=== PATIENT | female | born 1980 | race Caucasian/White ===

== ENCOUNTER 2017-04-06 14:09 | Inpatient (IN) ==
--- NOTE | 2017-04-06 14:19 | Emergency Department Note ---
Disposition Clinical Impression: Facial cellulitis, Periorbital cellulitis Disposition: Admitted As Inpatient Condition: Good Eye Problem HPI - General Chief complaint: ED Eye Problems Stated complaint: facial cellulitis Time Seen by Provider: 04/06/17 14:13 Source: patient Mode of arrival: ambulatory Limitations: no limitations Nursing Notes Reviewed: Yes Vital Signs Reviewed: Yes - History of Present Illness HPI Narrative: Patient presents to the ED as a transfer from urgent care with the complaint of facial swelling. Patient has a reported history of MRSA previous facial cellulitis. States that last night she noticed her face was swelling on the left than the right. No lesions or bites noted. States that this morning she woke up and her entire right eye and face were incredibly swollen. [facility] and was immediately told to come here. No fever. No pain with eye movement. No changes in vision other than her eye is almost swollen shut. Has had some drainage from around her eye. Also complaining of a headache on that side behind her right eye. No rashes, chest pain or shortness of breath. - Related Data Home Medications Medication Instructions Recorded Confirmed Acetaminophen [Tylenol Arthritis] 650 mg PO Q8H PRN 04/06/17 04/06/17 Norethindrone [Salud] 0.35 mg PO DAILY 04/06/17 04/06/17 Omeprazole [PriLOSEC] 40 mg PO DAILY 04/06/17 04/06/17 Sertraline [Zoloft] 50 mg PO DAILY 04/06/17 04/06/17 Allergies Allergy/AdvReac Type Severity Reaction Status Date / Time pseudoephedrine AdvReac See Verified 04/06/17 14:12 [From Sudafed] Comments tramadol [From Ultram] AdvReac See Verified 04/06/17 14:12 Comments All systems ED: reviewed and negative except as stated. Constitutional: Denies: fever Eyes: Reports: as per HPI ENT ED: Reports: as per HPI Cardiovascular: Denies: chest pain Respiratory: Denies: dyspnea Gastrointestinal: Denies: abdominal pain Past Medical History - Past Medical History Attestation: Yes The following information was validated with the patient. Source: patient Medical history: Reports: GERD Psychiatric history: Reports: anxiety, panic disorder, PTSD - Social History Smoking Status: Current every day smoker Alcohol use: Reports: none Drug use: Reports: none Physical Exam - General Limitations: no limitations General appearance: alert, in no apparent distress - Expanded Head Exam 1 - swelling and edema of face, mild erythema, no obvious abscess or lacerations or abrasions - Eye Eye exam: Present: PERRL, EOMI (without pain ). Absent: conjunctival injection , miosis, mydriasis - ENT ENT exam: normal oropharynx - Neck Neck exam: Present: normal inspection, full ROM, trachea midline - Chest Chest inspection: Present: normal inspection, symmetric chest wall rise - Respiratory Respiratory exam: Present: normal lung sounds bilaterally - Cardiovascular Cardiovascular exam: Present: regular rate, normal rhythm, normal heart sounds - Neurological Exam Neurological exam: Present: alert, oriented X3 - Psychiatric Psychiatric exam: Present: normal affect, normal mood - Skin Skin exam: Present: warm, dry, intact. Absent: normal color (mild erythema to R face) Course Course Narrative: Patient presenting with extensive swelling to the right side of her face. Concern over. Facial cellulitis. I is just about swollen shut on the right, but is able to be evaluated. No pain with eye movement and no proptosis or conjunctival injection. Feel that orbital cellulitis is less likely, although with the rapid onset and progression of symptoms, we will order a CT scan with IV contrast of her orbits to further evaluate. No mastoid tenderness - Reevaluation(s) Reevaluation #1: CT scan shows periorbital cellulitis and facial cellulitis. Will admit. Vital Signs Temperature 97.8 F 04/06/17 14:10 Pulse Rate 84 04/06/17 14:10 Respiratory Rate 16 04/06/17 14:10 Blood Pressure 133/82 04/06/17 14:10 O2 Sat by Pulse Oximetry 99 04/06/17 14:10 Temperature 97.8 F 04/06/17 14:10 Pulse Rate 69 04/06/17 17:04 Respiratory Rate 20 04/06/17 17:04 Blood Pressure 116/72 04/06/17 17:04 O2 Sat by Pulse Oximetry 98 04/06/17 17:04 Oxygen Delivery Oxygen Delivery Room Air Eye - MDM Narrative Medical decision making narrative: I examined this patient and my medical decision-making was reviewed with the Resident Physician. I agree with the documented findings, disposition and treatment plan as described except to the extent set forth below. Patient seen and evaluated by Dr. Moeller and myself, I agree with his evaluation and management plan, I supervised the care of the patient's stay. Patient presents today with 1 day of swelling around her right cheek and eye. Not allergic to anything she is aware of. The area is warm to touch this does not involve the eye itself. This is worse from worrisome for an orbital cellulitis. We will start on vancomycin check labs and CT the area. She will need admission. She is in agreement with plan. Orbit CT 04/06/17 14:14 IMPRESSION: Subcutaneous soft tissue swelling at the the right premaxillary/premandibular region extending to the bilateral premalar regions and bilateral periorbital regions, right more than left, likely related to soft tissue cellulitis. No evidence of fluid collection or abscess. Right preseptal orbital cellulitis without postseptal extension of inflammatory changes. The bilateral postseptal orbits are within normal limits. Mildly prominent bilateral cervical lymph nodes, most pronounced at the level 2A, likely reactive. Mild right sphenoid sinusitis. D/ / Ajit Swift MD / Ajit Swift MD Interpreting Provider: Ajit Swift MD 1600 hrs. we will go ahead and admit patient to the hospital this time speaking with hospitalist. Patient's agreement with plan. - Lab Data Result diagrams: 04/06/17 14:25 04/06/17 14:25 Lab Results 04/06/17 04/06/17 Range/Units 14:25 14:25 WBC 8.9 (4.3-11.1) K/mcL RBC 4.89 (3.82-4.97) M/mcL Hgb 15.1 (11.5-15.4) g/dL Hct 44.0 (35.3-44.9) % MCV 90.0 (83.0-100.0) fL MCH 30.9 (28.0-33.3) pg MCHC 34.3 (31.6-35.5) g/dL RDW 12.7 (11.5-14.5) % Plt Count 267 (140-400) K/mcL MPV 9.5 (9.4-12.4) fL Immature Gran % 0.5 (0-4) % Seg Neutrophils % 75.1 % Lymphocytes % 16.5 % Monocytes % 6.0 % Eosinophils % 1.2 % Basophils % 0.7 % Neutrophils # 6.7 (1.6-8.9) K/mcL Lymphocytes # 1.5 (0.6-4.6) K/mcL Monocytes # 0.5 (0.0-1.3) K/mcL Eosinophils # 0.1 (0.0-0.6) K/mcL Basophils # 0.1 (0.0-0.2) K/mcL Sodium 136 (136-145) mEq/L Potassium 2.9 L (3.5-4.5) mEq/L Chloride 103 (98-109) mEq/L Carbon Dioxide 24 (19-29) mEq/L BUN 7 (7-20) mg/dL Creatinine 0.69 (0.57-1.11) mg/dL Est GFR ( Amer) > 60 (> 60) Est GFR (Non-Af Amer) > 60 (> 60) BUN/Creatinine Ratio 10 (6-26) Glucose 98 (70-99) mg/dL Calculated Osmolality 280 (280-300) Calcium 9.0 (8.6-10.8) mg/dL
[2017-04-06] MEDS ORDERED: 0.9 % Sodium Chloride 1,000 ML IVC ONE (14:21)
[2017-04-06] MEDS ORDERED: Ketorolac 15 MG/ML VIAL IVP ONE (14:30)
[2017-04-06 14:32] LABS: Basophils # 0.1 K/mcL (0.0-0.2); Basophils % 0.7 %; Eosinophils # 0.1 K/mcL (0.0-0.6); Eosinophils % 1.2 %; Hemoglobin 15.1 g/dL (11.5-15.4); Immature Granulocytes % 0.5 % (0-4); Lymphocytes # 1.5 K/mcL (0.6-4.6); Lymphocytes % 16.5 %; Mean Corpuscular HGB Conc 34.3 g/dL (31.6-35.5); Mean Corpuscular Hemoglobin 30.9 pg (28.0-33.3); Mean Platelet Volume 9.5 fL (9.4-12.4); Monocytes # 0.5 K/mcL (0.0-1.3); Neutrophils # 6.7 K/mcL (1.6-8.9); Platelet Count 267 K/mcL (140-400); Red Blood Count 4.89 M/mcL (3.82-4.97); Red Cell Distribution Width 12.7 % (11.5-14.5); Segmented Neutrophils % 75.1 %
[2017-04-06 14:43] LABS: BUN/Creatinine Ratio 10 (6-26); Blood Urea Nitrogen 7 mg/dL (7-20); Carbon Dioxide 24 mEq/L (19-29); Chloride 103 mEq/L (98-109); Glucose 98 mg/dL (70-99); Osmolality,Calculated 280 (280-300); Potassium 2.9 mEq/L (3.5-4.5); Sodium 136 mEq/L (136-145); eGFR For African Americans > 60 (> 60); eGFR For Non-African Americans > 60 (> 60)
[2017-04-06] MEDS ORDERED: Vancomycin 1,750 MG in D5% in Water 500 ML IVPB ONE (15:00)
[2017-04-06] MEDS ORDERED: *HR* HYDROmorphone (PF) 1 MG/ML SYRINGE IVP ONE ×3 (15:09→17:16)
[2017-04-06] MEDS ORDERED: *HR* HYDROmorphone (PF) 1 MG/ML SYRINGE ONE (17:18)
[2017-04-06] MEDS ORDERED: *HR* HYDROmorphone (PF) 1 MG/ML SYRINGE IVP PRN (17:36)
[2017-04-06] MEDS ORDERED: Naloxone 0.4 MG/ML INJ IVP PRN (17:40)
[2017-04-06] MEDS ORDERED: MOM Conc 10 ML UD.LIQ PO PRN (17:40)
[2017-04-06] MEDS ORDERED: *HR* HYDROcodone/Acet 5/325 mg TABLET PO PRN (17:40)
--- NOTE | 2017-04-06 17:44 | Internal Med History&Physical ---
<Muriel Bunch - Last Filed: 04/06/17 17:31> Date of Encounter: 04/06/17 Time of Encounter: 17:15 Assessment and Plan (1) Facial cellulitis Current visit: Yes Status: Acute Pt reports that last night she noticed facial swelling, right > left. Swelling and redness became diffuse and significantly worse today. Pt has periorbital cellulitis to right eye with no vision due to swelling. Left eye slightly affected with swelling in inner canthus area. She denies any known injury, but has prior history of MRSA and recent root canal that the dentist said showed signs of infection prior to procedure. 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 Pt denies n/v/d, dizziness, fever, or chills. -Cold compresses to face prn -Vancomycin 1250mg IV bid -Zosyn 3.375g q6h -Dilaudid 1 mg every 4 hours as needed for pain -Ibuprofen 600mg po every 6 hours prn pain Orbit CT 04/06/17 14:14 IMPRESSION: Subcutaneous soft tissue swelling at the the right premaxillary/premandibular region extending to the bilateral premalar regions and bilateral periorbital regions, right more than left, likely related to soft tissue cellulitis. No evidence of fluid collection or abscess. Right preseptal orbital cellulitis without postseptal extension of inflammatory changes. The bilateral postseptal orbits are within normal limits. Mildly prominent bilateral cervical lymph nodes, most pronounced at the level 2A, likely reactive. Mild right sphenoid sinusitis. D/ / Ajit Swift MD / Ajit Swift MD Interpreting Provider: Ajit Swift MD (2) Anxiety Current visit: Yes Status: Acute Pt reports increased anxiety today since in the hospital. Continue home medications. Hydroxyzine 25mg po bid prn anxiety. (3) GERD (gastroesophageal reflux disease) Current visit: Yes Status: Acute Chronic. Prilosec 20mg po daily. Qualifiers: Esophagitis presence: esophagitis presence not specified Qualified Code(s) : K21.9 - Gastro-esophageal reflux disease without esophagitis (4) DVT prophylaxis Current visit: Yes Status: Acute Lovenox SQ. Pt is ambulatory Internal Medicine - H&P: HPI Admitted From: Home Plans for Post Hospital Care: Home History of present illness: Ms. Jones is a 36 year old female with prior history of MRSA and recent root canal. She presents to the emergency department with facial swelling, pain, pressure onset this morning. Patient denies any known injury, abrasions, lacerations or allergies. Pt had root canal 2 weeks ago, pt states that the dentist said there was infection in the tooth prior to procedure. Patient reports total vision loss in right eye due to edema. She denies nausea, vomiting, diarrhea, fever, chills, dizziness, abdominal pain. Pt reports prior history of a "pimple in my nose" with diagnosis of MRSA. Past Med Surg Social Fam HX - Past Medical History Medical history: GERD Psychiatric history: anxiety, panic disorder, PTSD - Social History Smoking Status: Current every day smoker Alcohol use: none Drug use: none Internal Medicine - H&P: Meds Acetaminophen [Tylenol Arthritis] 650 mg PO Q8H PRN 04/06/17 [History] Norethindrone [Salud] 0.35 mg PO DAILY 04/06/17 [History] Omeprazole [PriLOSEC] 40 mg PO DAILY 04/06/17 [History] Sertraline [Zoloft] 50 mg PO DAILY 04/06/17 [History] 3 Allergy/AdvReac Type Severity Reaction Status Date / Time pseudoephedrine AdvReac See Verified 04/06/17 14:12 [From Sudafed] Comments tramadol [From Ultram] AdvReac See Verified 04/06/17 14:12 Comments All Systems PM: A 10-system review of systems was performed and is negative for pertinent findings except as documented above in the HPI. - Constitutional Constitutional: no chills, no fever(s), no weakness - EENT Eyes: change in vision, loss of peripheral vision Ears: ear pain Nose, mouth and throat: facial pain, sinus pain - Cardiovascular Cardiovascular ROS IM: no chest pain, no lightheadedness, no palpitations - Respiratory Respiratory: no cough, no dyspnea on exertion, no pain on inspiration, no chest congestion - Gastrointestinal Gastrointestinal: no diarrhea, no nausea, no vomiting - Musculoskeletal Musculoskeletal ROS IM: no myalgias, no numbness, no tingling - Integumentary Integumentary IM: no new lesions, no non-healing lesions, no rash - Neurological Neurological ROS: loss of vision, no abnormal gait, no dizziness, no weakness - Constitutional Vitals: Temp Pulse Resp BP Pulse Ox 97.8 F 69 20 116/72 98 04/06/17 14:10 04/06/17 17:04 04/06/17 17:04 04/06/17 17:04 04/06/17 17:04 General appearance: Present: cooperative, mild distress, A&O X 3, pleasant, answers questions appropriately - Head Head exam: Present: normocephalic. Absent: normal inspection - Eye Eye exam: Present: periorbital swelling, periorbital tenderness, conjuntiva pink. Absent: normal appearance Pupils: Present: PERRL - Neck Neck exam general surgery: Present: supple, trachea midline. Absent: lymphadenopathy, tenderness - Respiratory Respiratory exam: Present: CTAB. Absent: accessory muscle use, chest wall tenderness, rales, respiratory distress, rhonchi, wheezes - Cardiovascular Cardiovascular exam: Present: RRR, +S1, +S2. Absent: diastolic murmur, gallop, rubs, systolic murmur - GI/Abdominal GI/Abdominal exam: Present: normal bowel sounds, soft. Absent: distended, hepatomegaly, tenderness - Extremities Exam Extremities exam: Present: normal capillary refill, pedal edema, warm, radial pulses palpable and symmetrical. Absent: calf tenderness, cyanotic, normal inspection, tenderness - Neurological Exam Neurological exam: Present: alert, oriented X3, no focal deficits. Absent: speech deficit - Skin Skin exam: Present: dry, intact, normal color, warm Internal Med - H&P Results - Labs CBC & Chem 7: 04/06/17 14:25 04/06/17 14:25 <Shay Miller - Last Filed: 04/06/17 19:20> Date of Encounter: 04/06/17 Internal Medicine - H&P: HPI History of present illness: Ms. Jones is a 36 year old female All Systems PM: A 10-system review of systems was performed and is negative for pertinent findings except as documented above in the HPI. - Constitutional Vitals: Temp Pulse Resp BP Pulse Ox 98.1 F 74 16 108/64 99 04/06/17 18:37 04/06/17 18:37 04/06/17 18:37 04/06/17 18:37 04/06/17 18:37 Internal Med - H&P Results - Labs CBC & Chem 7: 04/06/17 14:25 04/06/17 14:25 - Attending Attestation I examined this patient and my medical decision-making was reviewed with the ART EDUCATION PROFESSOR. I agree with the documented findings, disposition and treatment plan as described except to the extent set forth below. Patient is a 36-year-old female with past medical history of GERD, anxiety, panic disorder and PTSD. She is a current daily smoker. She presents to the ED with complaints of facial pain and swelling. She states it started last night and has been worsening. No known injury. She did have a count treatment on the right upper molars about 2 weeks ago. Her dentist apparently told her that she does have an infection and she was apparently not given antibiotics at that time. Patient complains of severe pain and redness and swelling. He states his lower pressure on her face. Initial workup in the ED with with a CT of the orbit reveals subcutaneous soft tissue swelling of the right pre- maxillary and pre-mandibular region extending to the bilateral pre-malar regions and bilateral periorbital regions right more than the left likely related to soft tissue cellulitis and no evidence of fluid collection or abscess. There is right preseptal orbital cellulitis without post-septal extension of the inflammatory changes. Patient needs IV Vancomycin and IV Zosyn and IV fluids. Patient has been explained about her condition and plan of care in detail. She understood and agreed. No unanswered questions. CODE STATUS full code. Heart rate 74, blood pressure 108/64, O2 sat 99% on room air. Heart S1-S2 positive. Lungs bilateral good air entry, bilateral mild wheezing. Abdomen soft nontender. HEENT - atraumatic. Patient does have severe right-sided facial swelling and redness. She does have periorbital swelling over the right eye. Pupils are reacting equally bilaterally. She does have the swelling that is extending across the midline on the left side. She does have tenderness over right side of face.
[2017-04-06] MEDS ORDERED: hydrOXYzine pamoate 25 MG CAPSULE PO PRN (18:05)
[2017-04-06] MEDS: Piperacillin/Tazobactam 3.375 GM in D5% in Water (Mini-Bag+) 100 ML IVPB SCH (18:43)
[2017-04-06] MEDS: *HR* Morphine 2 MG/ML SYRINGE IVP PRN (19:39)
[2017-04-06] MEDS ORDERED: Vancomycin (wt based) 1,000 MG VIAL IV SCH (21:00)
[2017-04-06] MEDS: Ibuprofen 600 MG TABLET PO PRN (22:42)
[2017-04-07] MEDS: Piperacillin/Tazobactam 3.375 GM in D5% in Water (Mini-Bag+) 100 ML IVPB SCH ×3 (02:26→18:33)
[2017-04-07] MEDS: *HR* Morphine 2 MG/ML SYRINGE IVP PRN ×5 (02:34→22:50)
[2017-04-07 04:35] LABS: Basophils # 0.1 K/mcL (0.0-0.2); Basophils % 1.2 %; Eosinophils # 0.2 K/mcL (0.0-0.6); Eosinophils % 2.8 %; Hematocrit 39.2 % (35.3-44.9); Immature Granulocytes % 0.3 % (0-4); Lymphocytes # 1.6 K/mcL (0.6-4.6); Lymphocytes % 25.9 %; Mean Corpuscular HGB Conc 33.2 g/dL (31.6-35.5); Mean Corpuscular Hemoglobin 30.4 pg (28.0-33.3); Mean Corpuscular Volume 91.8 fL (83.0-100.0); Monocytes # 0.5 K/mcL (0.0-1.3); Neutrophils # 3.7 K/mcL (1.6-8.9); Platelet Count 209 K/mcL (140-400); Red Blood Count 4.27 M/mcL (3.82-4.97); Red Cell Distribution Width 12.9 % (11.5-14.5); Segmented Neutrophils % 61.8 %
[2017-04-07 04:44] LABS: BUN/Creatinine Ratio 6 (6-26); Carbon Dioxide 25 mEq/L (19-29); Chloride 109 mEq/L (98-109); Glucose 105 mg/dL (70-99); Osmolality,Calculated 285 (280-300); Potassium 3.4 mEq/L (3.5-4.5); Sodium 139 mEq/L (136-145); eGFR For African Americans > 60 (> 60); eGFR For Non-African Americans > 60 (> 60)
[2017-04-07 04:46] LABS: Blood Urea Nitrogen 4 mg/dL (7-20)
[2017-04-07] MEDS: *HR* Enoxaparin 40 MG/0.4 ML SYRINGE SQ SCH (05:31)
[2017-04-07] MEDS: Ibuprofen 600 MG TABLET PO PRN ×3 (05:37→20:49)
[2017-04-07] MEDS: Vancomycin 1,750 MG in D5% in Water 500 ML IVPB SCH ×2 (07:41→20:50)
[2017-04-07] MEDS: Ondansetron ODT 4 MG TAB.RAPDIS SL PRN (07:42)
--- NOTE | 2017-04-07 09:23 | Internal Med Progress Note ---
Date of Encounter: 04/07/17 Time of Encounter: 07:20 - Assessment and plan (1) Facial cellulitis Current Visit: Yes Status: Acute Assessment and plan: Acute right-sided facial cellulitis and right periorbital cellulitis extending to the left side of face - possibly due to recent dental infection - symptoms seem to have slightly improved since last night Continue empiric IV Vancomycin, IV Zosyn, Motrin PRN, Tylenol PRN Continue compresses to face PRN, IV Morphine PRN Cultures - pending CT orbit - subcutaneous soft tissue swelling of the right pre-maxillary and pre- mandibular region extending to the bilateral pre-malar regions and bilateral periorbital regions worse on the right side, likely soft tissue cellulitis, right preseptal orbital cellulitis WBC - 6.0 Labs in a.m., monitor closely (2) Anxiety Current Visit: Yes Status: Chronic Assessment and plan: Generalized anxiety, stable Continue home dose of Zoloft, Hydroxyzine as needed (3) COPD (chronic obstructive pulmonary disease) Current Visit: Yes Status: Chronic Assessment and plan: Probable COPD, mild exacerbation Continue DuoNeb breathing treatment Qualifiers: COPD type: unspecified COPD Qualified Code(s): J44.9 - Chronic obstructive pulmonary disease, unspecified (4) GERD (gastroesophageal reflux disease) Current Visit: Yes Status: Chronic Assessment and plan: Chronic GERD Continue Prilosec Qualifiers: Esophagitis presence: esophagitis presence not specified Qualified Code(s) : K21.9 - Gastro-esophageal reflux disease without esophagitis (5) Tobacco abuse Current Visit: Yes Status: Chronic Assessment and plan: Counseled on cessation, nicotine patch (6) DVT prophylaxis Current Visit: Yes Status: Acute Assessment and plan: Continue Lovenox subcutaneous - Time Spent With Patient 25 - 35 minutes - Subjective Interval history: Examined this morning. Patient is awake and alert. Not in any distress. Denies chest pain or shortness of breath. Hemodynamically stable. No fever. Right-sided facial swelling and pain seems to be improving slowly. Patient states she thinks the redness has also improved slightly. Patient is now able to open her right eye as the swelling has improved. No other acute events or complaints. - Constitutional Vitals: Temp Pulse Resp BP Pulse Ox 98.1 F 64 16 97/63 98 04/07/17 07:09 04/07/17 07:09 04/07/17 07:09 04/07/17 07:09 04/07/17 07:09 General appearance: Present: cooperative, A&O X 3, pleasant, no acute distress, obese, answers questions appropriately - Head Head exam: Present: atraumatic - Eye Eye exam: Present: EOMI - ENT ENT exam: Present: mucous membranes moist Additional comments: Atraumatic. Right-sided facial swelling and erythema improved slightly. Right periorbital swelling also improving. Pupils are reacting equally bilaterally. She does have the swelling that is extending across the midline on the left side , this seems to be improving as well. Mild tenderness over right side of face. - Respiratory Respiratory exam: Present: wheezes (Mild bilateral). Absent: accessory muscle use, rales, rhonchi, tachypnea - Cardiovascular Cardiovascular exam: Present: RRR, +S1, +S2 - GI/Abdominal GI/Abdominal exam: Present: soft. Absent: distended, firm, guarding, tenderness - Extremities Exam Extremities exam: Present: radial pulses palpable and symmetrical. Absent: calf tenderness, cyanotic, pedal edema - Neurological Exam Neurological exam: Present: alert, oriented X3, no focal deficits. Absent: facial droop, speech deficit Internal Medicine: Result - Labs CBC & Chem 7: 04/07/17 04:10 04/07/17 04:10 Consult Discharge Plan - Plan Referrals: Nela Cormier DO [Primary Care Provider] -
[2017-04-07] MEDS: 0.9 % Sodium Chloride 1,000 ML IVC SCH (10:11)
[2017-04-07] MEDS: Nicotine 21 MG PATCH.TD24 TD SCH (10:12)
[2017-04-07] MEDS: Ipratropium/Albuterol Neb 3 ML IH SCH ×3 (11:25→22:59)
[2017-04-08] MEDS: Piperacillin/Tazobactam 3.375 GM in D5% in Water (Mini-Bag+) 100 ML IVPB SCH ×4 (01:51→23:38)
[2017-04-08] MEDS: Ipratropium/Albuterol Neb 3 ML IH SCH ×4 (04:25→21:50)
[2017-04-08] MEDS: *HR* Morphine 2 MG/ML SYRINGE IVP PRN ×5 (06:07→23:39)
[2017-04-08] MEDS: *HR* Enoxaparin 40 MG/0.4 ML SYRINGE SQ SCH (06:10)
[2017-04-08] MEDS: Nicotine 21 MG PATCH.TD24 TD SCH (07:58)
[2017-04-08] MEDS: Vancomycin 1,750 MG in D5% in Water 500 ML IVPB SCH ×2 (07:58→20:11)
[2017-04-08] MEDS: 0.9 % Sodium Chloride 1,000 ML IVC SCH ×2 (09:59→11:02)
[2017-04-08] MEDS: Ibuprofen 600 MG TABLET PO PRN ×2 (11:47→20:26)
[2017-04-08] MEDS: Loratadine 10 MG TABLET PO SCH (13:46)
--- NOTE | 2017-04-08 15:18 | Internal Med Progress Note ---
Date of Encounter: 04/08/17 Time of Encounter: 07:40 - Assessment and plan (1) Facial cellulitis Current Visit: Yes Status: Acute Assessment and plan: Acute right-sided facial cellulitis and right periorbital cellulitis extending to the left side of face - possibly due to recent dental infection - symptoms seem to slowly improving Continue empiric IV Vancomycin, IV Zosyn, Motrin PRN, Tylenol PRN Continue compresses to face PRN, IV Morphine PRN Cultures - no growth CT orbit - subcutaneous soft tissue swelling of the right pre-maxillary and pre- mandibular region extending to the bilateral pre-malar regions and bilateral periorbital regions worse on the right side, likely soft tissue cellulitis, right preseptal orbital cellulitis WBC - 6.0 Labs in a.m., monitor closely 04/08 - erythema and swelling to the right side of face improved, patient complains of nasal congestion, continue IV antibiotics (2) Anxiety Current Visit: Yes Status: Chronic Assessment and plan: Generalized anxiety, stable Continue home dose of Zoloft, Hydroxyzine PRN (3) COPD (chronic obstructive pulmonary disease) Current Visit: Yes Status: Chronic Assessment and plan: Probable COPD, mild exacerbation - improving slowly Continue DuoNeb breathing treatment Qualifiers: COPD type: unspecified COPD Qualified Code(s): J44.9 - Chronic obstructive pulmonary disease, unspecified (4) GERD (gastroesophageal reflux disease) Current Visit: Yes Status: Chronic Assessment and plan: Chronic GERD - Continue Prilosec Qualifiers: Esophagitis presence: esophagitis presence not specified Qualified Code(s) : K21.9 - Gastro-esophageal reflux disease without esophagitis (5) Tobacco abuse Current Visit: Yes Status: Chronic Assessment and plan: Counseled on cessation, Nicotine patch (6) DVT prophylaxis Current Visit: Yes Status: Acute Assessment and plan: Continue Lovenox subcutaneous - Time Spent With Patient 25 - 35 minutes - Subjective Interval history: Examined this morning. Patient is awake and alert. Not in any distress. Denies chest pain or shortness of breath. Hemodynamically stable. No fever. Right-sided facial swelling and pain seems to be improving slowly. Patient states she thinks the redness has also improved slightly. She continues to have mild pain over the right side of face. Patient is now able to open her right eye as the swelling has improved. Pain improves with pain medication and ibuprofen. She also complains of mild nasal congestion. No other acute events or complaints. - Constitutional Vitals: Temp Pulse Resp BP Pulse Ox 98.3 F 71 16 128/86 96 04/08/17 10:50 04/08/17 10:50 04/08/17 10:50 04/08/17 10:50 04/08/17 10:50 General appearance: Present: cooperative, A&O X 3, pleasant, no acute distress, obese, answers questions appropriately - Head Head exam: Present: atraumatic - Eye Eye exam: Present: EOMI, PERRL - ENT ENT exam: Present: mucous membranes moist Additional comments: Atraumatic. Right-sided facial swelling and erythema improved slightly. Right periorbital swelling also improving. Pupils are reacting equally bilaterally. She does have the swelling that is extending across the midline on the left side , this seems to be improving as well. Patient is able to open her right eyelid. Mild tenderness over right side of face. - Neck Neck exam general surgery: Present: full ROM - Respiratory Respiratory exam: Present: wheezes (Mild bilateral). Absent: chest wall tenderness, rales, rhonchi, tachypnea - Cardiovascular Cardiovascular exam: Present: RRR, +S1, +S2 - GI/Abdominal GI/Abdominal exam: Present: soft. Absent: distended, firm, guarding, tenderness - Extremities Exam Extremities exam: Present: radial pulses palpable and symmetrical. Absent: calf tenderness, cyanotic, pedal edema - Neurological Exam Neurological exam: Present: alert, oriented X3, no focal deficits. Absent: facial droop, speech deficit Internal Medicine: Result - Labs CBC & Chem 7: 04/07/17 04:10 04/07/17 04:10 Consult Discharge Plan - Plan Referrals: Nela Cormier DO [Primary Care Provider] -
--- NOTE | 2017-04-08 17:09 | Electrocardiograph Report ---
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
[2017-04-08] MEDS: Ondansetron ODT 4 MG TAB.RAPDIS SL PRN (18:52)
[2017-04-09] MEDS: Ipratropium/Albuterol Neb 3 ML IH SCH ×3 (03:38→15:56)
[2017-04-09] MEDS: Piperacillin/Tazobactam 3.375 GM in D5% in Water (Mini-Bag+) 100 ML IVPB SCH (05:45)
[2017-04-09] MEDS: *HR* Enoxaparin 40 MG/0.4 ML SYRINGE SQ SCH (05:47)
[2017-04-09] MEDS: *HR* Morphine 2 MG/ML SYRINGE IVP PRN (05:53)
[2017-04-09 06:50] LABS: BUN/Creatinine Ratio 10 (6-26); Blood Urea Nitrogen 8 mg/dL (7-20); Carbon Dioxide 25 mEq/L (19-29); Chloride 112 mEq/L (98-109); Glucose 102 mg/dL (70-99); Osmolality,Calculated 295 (280-300); Potassium 3.7 mEq/L (3.5-4.5); Sodium 143 mEq/L (136-145); eGFR For African Americans > 60 (> 60); eGFR For Non-African Americans > 60 (> 60)
[2017-04-09] MEDS: 0.9 % Sodium Chloride 1,000 ML IVC SCH (08:23)
[2017-04-09] MEDS: Nicotine 21 MG PATCH.TD24 TD SCH (08:23)
[2017-04-09] MEDS: Loratadine 10 MG TABLET PO SCH (08:23)
[2017-04-09] MEDS: Ibuprofen 600 MG TABLET PO PRN ×2 (08:34→15:35)
[2017-04-09] MEDS ORDERED: Acetaminophen 325 MG TABLET PO PRN (08:45)
[2017-04-09] MEDS: Vancomycin 1,750 MG in D5% in Water 500 ML IVPB SCH (09:00)
[2017-04-09 11:43] VITALS: BP 123/72
--- NOTE | 2017-04-09 12:00 | Discharge Summary ---
Date of Encounter: 04/09/17 Time of Encounter: 08:30 - Discharge Diagnosis (1) Facial cellulitis Priority: Primary Status: Acute Comments: Acute right-sided facial cellulitis and right periorbital cellulitis extending to the left side of face - possibly due to recent dental infection - symptoms now significantly improved Continue empiric Augmentin, Bactrim DS, Motrin PRN, Tylenol PRN Continue compresses to face PRN Cultures - no growth CT orbit - subcutaneous soft tissue swelling of the right pre-maxillary and pre- mandibular region extending to the bilateral pre-malar regions and bilateral periorbital regions worse on the right side, likely soft tissue cellulitis, right preseptal orbital cellulitis WBC - 6.0 04/08 - erythema and swelling to the right side of face improved, patient complains of nasal congestion, continue IV antibiotics 04/09 - right facial swelling and erythema now improved significantly, patient requests discharge today Return if symptoms worsen, advised close outpatient follow-up with PCP (2) Anxiety Priority: Secondary Status: Chronic Comments: Generalized anxiety, stable Continue home dose of Zoloft, Hydroxyzine PRN (3) COPD (chronic obstructive pulmonary disease) Priority: Secondary Status: Chronic Comments: Probable COPD, mild exacerbation - improved Continue DuoNeb breathing treatment PRN Qualifiers: COPD type: unspecified COPD Qualified Code(s): J44.9 - Chronic obstructive pulmonary disease, unspecified (4) GERD (gastroesophageal reflux disease) Priority: Secondary Status: Chronic Comments: Chronic GERD - Continue Prilosec Qualifiers: Esophagitis presence: esophagitis presence not specified Qualified Code(s) : K21.9 - Gastro-esophageal reflux disease without esophagitis (5) Tobacco abuse Priority: Secondary Status: Chronic Comments: Counseled on cessation, Nicotine patch - Discharge Medications Prescriptions: Ipratropium/Albuterol Neb [Duoneb] 3 ml IH [id number] #30 inhsol Ibuprofen [Motrin] 600 mg PO Q8HR PRN #20 tablet PRN Reason: Pain Amoxicillin/Clavulanate [Augmentin] 875 mg PO BIDWM 10 Days #20 tablet Loratadine [Claritin] 10 mg PO DAILY PRN #10 tablet PRN Reason: Congestion Nicotine Patch [Nicoderm] 21 mg TD DAILY #30 patch.[id number] Sulfamethoxazole/Trimeth DS [Bactrim DS] 1 each PO BID 10 Days #20 tablet Home Medications: Acetaminophen [Tylenol Arthritis] 650 mg PO Q8H PRN 04/06/17 [History] Norethindrone [Salud] 0.35 mg PO DAILY 04/06/17 [History] Omeprazole [PriLOSEC] 40 mg PO DAILY 04/06/17 [History] Sertraline [Zoloft] 50 mg PO DAILY 04/06/17 [History] Amoxicillin/Clavulanate [Augmentin] 875 mg PO BIDWM 10 Days #20 tablet 04/09/17 [Rx] Ibuprofen [Motrin] 600 mg PO Q8HR PRN #20 tablet 04/09/17 [Rx] Ipratropium/Albuterol Neb [Duoneb] 3 ml IH [id number] #30 inhsol 04/09/17 [Rx] Loratadine [Claritin] 10 mg PO DAILY PRN #10 tablet 04/09/17 [Rx] Nicotine Patch [Nicoderm] 21 mg TD DAILY #30 patch.[id number] 04/09/17 [Rx] Sulfamethoxazole/Trimeth DS [Bactrim DS] 1 each PO BID 10 Days #20 tablet [Rx] Allergies/Adverse Reactions: 3 Allergy/AdvReac Type Severity Reaction Status Date / Time pseudoephedrine AdvReac See Verified 04/06/17 14:12 [From Sudafed] Comments tramadol [From Ultram] AdvReac See Verified 04/06/17 14:12 Comments Date of admission: 04/07/17 07:07 Primary care physician: Nela Cormier DO Anticipated date of discharge: 04/09/17 - Patient Status Disposition: Home, Self-Care Condition: Good Functional capacity at discharge: independent ambulation Overall status at discharge: patient is progressing back to baseline - Discharge Instructions Instructions: Sulfamethoxazole/Trimethoprim (By mouth), Ibuprofen (By mouth), Loratadine (By mouth), Amoxicillin/Clavulanate Potassium (By mouth), Nicotine ( Absorbed through the skin), Ipratropium/Albuterol (By breathing), Cellulitis (DC ) Follow Up With: Clarice Grace DO [Resident] - 04/15/17 10:00 am - Diet and Activity Activity: increase activity as tolerated, resume usual activities as tolerated Diet: advance to your usual diet Hospital course: Ms. Jones is a 36 year old female with past medical history of GERD, anxiety and pain and neck disorder. She presents to the ED with complaints of facial pain and swelling and redness. She recently had a root canal treatment and states that she was not prescribed an antibiotic for infection. Patient was admitted for acute right-sided facial cellulitis and right periorbital cellulitis extending to left side of face possibly due to recent dental infection. She was started on IV vancomycin and IV Zosyn. She was also Motrin for pain and swelling. She was also ordered on compresses for the swelling. CT of the orbit revealed subcutaneous soft tissue swelling on the right pre- maxillary and mandibular region extending to the bilateral pre-malar regions and bilateral periorbital regions worse in the right side likely soft tissue cellulitis. Patient also had right preseptal orbital cellulitis. White count was within normal limits. Did not show any growth. Patient's swelling and erythema and tenderness all improved. She did have some mild nasal congestion and was started on Claritin. Patient also had some wheezing and was started on DuoNeb breathing treatment. We continued IV antibiotics and we continued all her home medications. She was counseled on smoking cessation. Patient requests discharge today because she wants to spend time with her family on [facility]. She is being discharged on by mouth Bactrim and by mouth Augmentin. Right facial swelling and hurting him now improved significantly. She is tolerating oral diet well and ambulatory. She had no other acute events or complications during her stay in the hospital. Patient and family have been explained about her condition and plan of care in detail. They understood and agreed. No evidence of questions. Patient is being discharged in stable condition. Time spent discussing smoking cessation with patient: 3 to 10 minutes - Time Spent with Patient Total time spent providing and/or coordinating discharge services: Less than 30 minutes - Constitutional Vitals: Temp Pulse Resp BP Pulse Ox 97.4 F L 68 16 123/72 97 04/09/17 10:04/09/17 10:00 04/09/17 10:00 04/09/17 10:04/09/17 10:00 General appearance: Present: cooperative, A&O X 3, pleasant, no acute distress, obese, answers questions appropriately - Head Head exam: Present: atraumatic - Eye Eye exam: Present: EOMI, PERRL - ENT ENT exam: Present: mucous membranes moist Additional comments: Atraumatic. Right-sided facial swelling and erythema improved. Right periorbital improved. Pupils are reacting equally bilaterally. swelling that is extending across the midline on the left side, has improved. Patient is able to open her right eyelid completely. Minimal tenderness over right side of face. - Respiratory Respiratory exam: Present: CTAB. Absent: accessory muscle use, chest wall tenderness, rales, rhonchi, wheezes, tachypnea - Cardiovascular Cardiovascular exam: Present: RRR, +S1, +S2 - GI/Abdominal GI/Abdominal exam: Present: soft. Absent: distended, firm, guarding, tenderness - Extremities Exam Extremities exam: Present: radial pulses palpable and symmetrical. Absent: calf tenderness, cyanotic, pedal edema - Neurological Exam Neurological exam: Present: alert, oriented X3, no focal deficits. Absent: facial droop, speech deficit
[2017-04-09] MEDS ORDERED: Piperacillin/Tazobactam 3.375 GM in D5% in Water (Mini-Bag+) 100 ML IVPB SCH (14:00)
[2017-04-09] MEDS ORDERED: FLUARIX QUAD 2017-18 36MOS UP/PF 0.5 ML SYRINGE IM ONE (14:02)
[2017-04-09] MEDS ORDERED: Aminoglycoside Consult 1 EACH MC ONE (17:18)
== END 2017-04-09 17:19 | disposition home or self-care (01) | DRG 383 ==
LOC: 3BNU 14:09 → EMEROO 14:09 → 3BNU 17:34 → 3ANU 04-08 10:21
PROVIDERS: ADMIT Nurse Practitioner Family; ATTEND Registered Nurse